=== PATIENT | male | born 1970 | race Caucasian/White ===

== ENCOUNTER 2022-02-07 09:46 | Emergency (ER) | payer OTHER ==
--- OUTSIDE RECORDS SUMMARY | 2022-02-07 09:49 | XMS REPORT | Continuity of Care Document ---
:1970 Author Organization [facility] t Address [address] [place] [id number] Care Team Providers Name Role Phone Chiara Morelos Attending Clinician Unavailable Problems Condition Condition Condition Status Onset Resolution Last Treating Co mments Source Name Details Category Date Date Treatment Clinician Date Olecranon Olecranon Diagnosis Active C ommon bursitis bursitis Spirit of right of right - [facility] elbow elbow [facility] Pain in Pain in Diagnosis Active Commo n joint of joint of Spirit right right - [facility] elbow elbow [facility] Allergies, Adverse Reactions, Alerts This patient has no known allergies or adverse reactions. Medications Ordered Filled Start Stop Current Ordering Indication Dosage Frequency Signature Comments Components Source Medication Medication Date Date Medication? Clinician (SIG) Name Name Gabapentin Gabapentin Yes Ed TAKE 1 Common Ly CAPSULE BY Spirit MOUTH - [facility] EVERYDAY [facility] AT [facility] Diclofenac Diclofenac Yes Ed APPLY 2 Common Sodium Sodium Ly GRAMS [facility] Losartan Yes Ed TAKE 1 Co mmon Potassium-H Potassium-H Ly TABLET BY Spirit CTZ CTZ MOUTH - [facility] EVERY DAY [facility] Simvastatin Simvastatin Yes Ed TAKE 1 Common Ly TABLET [facility] Procedures This patient has no known procedures. Encounters Start End Encounter Admission Attending Care Care Encounter Source Date/Time Date/Time Type Type Clinicians Facility Department ID 2021-07-09 Outpatient ALEXA Morelos [facility] [id number] Common 11:12:56 Chiara [id number] [facility] 2021-12-08 2021-12-08 Outpatient LEWIS SAUCEDO [id number] Memoria 15:00:00 15:00:00 09 deidre Tellez 2021-12-08 2021-12-08 Outpatient [facility]IE [facility] [id number] Memoria 15:00:00 15:00:00 09 deidre Geoff 2020-12-06 2020-12-06 Outpatient MHIE [facility] [id number] Memoria 14:00:00 14:00:00 08 deidre Geoff 2020-12-06 2020-12-06 Outpatient MHIE [facility]IE [id number] Memoria 14:00:00 14:00:00 08 deidre Tellez 2019-12-08 2019-12-08 Outpatient MHIE [facility]IE [id number] Memoria 14:00:00 14:00:00 07 deidre Tellez 2019-12-08 2019-12-08 Outpatient MHIE MHIE [id number] Memoria 14:00:00 14:00:00 07 deidre Tellez 2019-08-22 2019-08-22 [id number] Common 11:00:00 11:00:00 [facility] 2019-04-05 2019-04-05 Outpatient MHIE MHIE [id number] Memoria 16:15:00 16:15:00 06 deidre Tellez 2019-04-05 2019-04-05 Outpatient MHIE [facility]IE [id number] Memoria 16:15:00 16:15:00 06 deidre Tellez 2019-03-30 2019-03-30 Outpatient MHIE [facility]IE [id number] Memoria 09:15:00 09:15:00 05 deidre Tellez 2019-03-30 2019-03-30 Outpatient MHIE [facility] [id number] Memoria 09:15:00 09:15:00 05 deidre Tellez 2018-11-29 2018-11-29 Outpatient MHIE [facility]IE [id number] Memoria 09:45:00 09:45:00 04 deidre Tellez 2018-11-29 2018-11-29 Outpatient MHIE MHIE [id number] Memoria 09:45:00 09:45:00 04 deidre Tellez 2018-10-19 2018-10-19 Outpatient MHIE MHIE [id number] Memoria 15:45:00 15:45:00 01 deidre Tellez 2018-10-19 2018-10-19 Outpatient MHIE [facility] [id number] Memoria 15:45:00 15:45:00 01 deidre Tellez 2018-09-02 2018-09-02 Outpatient MHIE MHIE [id number] Memoria 16:15:00 16:15:00 03 l Geoff 2018-09-02 2018-09-02 Outpatient MHIE MHIE [id number] Memoria 16:15:00 16:15:00 03 deidre Tellez 2018-08-25 2018-08-25 Outpatient MHIE MHIE [id number] Mem[facility] 13:00:00 13:00:00 02 l Geoff 2018-08-25 2018-08-25 Outpatient MHIE MHIE [id number] Memoria 13:00:00 13:00:00 02 deidre Tellez 2018-05-13 2018-05-13 Outpatient MHIE MHIE [id number] Mem[address] 09:15:00 09:15:00 00 deidre Tellez 2018-05-13 2018-05-13 Outpatient MHIE MHIE [id number] Memoria 09:15:00 09:15:00 00 deidre Tellez Results This patient has no known results.
--- NOTE | 2022-02-07 11:29 | RAD REPORT ---
EXAM DESCRIPTION: US - Extremity Venous Uni Ltd - 02/07/2022 11:18 am CLINICAL HISTORY: Pain COMPARISON: None. TECHNIQUE: Real-time sonographic evaluation of the left lower extremity deep venous system was perfo rmed. FINDINGS: Normal compressibility, flow augmentation, phasic flow and spontaneous flow is identified in the left lower extremity deep venous system. No intraluminal filling defects seen. IMPRESSION: No DVT in the left lower extremity.
--- NOTE | 2022-02-07 11:36 | ER ---
Nurse's Notes [facility] Name: Efraín Lebron Age: 51 yrs Sex: Male : 1970 Arrival Date: 02/07/2022 Time: 09:47 Bed 14 Private MD: Diagnosis: Pain in left leg Presentation: 02/07 09:52 Chief complaint: Patient states: Pain that began in L buttock area on Wednesday, but ss now has progressed to a cramp in L calf and tenderness to L ankle. Pt went to urgent care this morning, but was sent to ED for possible evaluation of DVT. Coronavirus screen: Client denies travel out of the [place] in the last 14 days. Ebola Screen: Patient denies exposure to infectious person. Patient denies travel to an Ebola-affected area in the 21 days before illness onset. Initial Sepsis Screen: Does the patient meet any 2 criteria? No. Patient's initial sepsis screen is negative. Does the patient have a suspected source of infection? No. Patient's initial sepsis screen is negative. Risk Assessment: Do you want to hurt yourself or someone else? Patient reports no desire to harm self or others. Onset of symptoms was February 04, 2022. 09:52 Method Of Arrival: Ambulatory ss 09:52 Acuity: MICHAEL 3 ss Triage Assessment: 10:00 General: Appears in no apparent distress. Behavior is calm, cooperative. jg9 Historical: - Allergies: 09:55 No Known Allergies; ss - Home Meds: 09:55 Simvastatin Oral [Active]; gabapentin oral [Active]; ss 09:56 losartan oral [Active]; Hydrochlorothiazide Oral [Active]; ss - PMHx: 09:55 Hypertensive disorder; High Cholesterol; Pinched nerve R arm; ss - PSHx: 09:55 Appendectomy; ss - Immunization history:: Client reports receiving the 2nd dose of the Covid vaccine. - Social history:: Smoking status: Patient denies any tobacco usage or history of. Screenin:29 Abuse screen: Denies threats or abuse. Denies injuries from another. Nutritional jg9 screening: No deficits noted. Tuberculosis screening: No symptoms or risk factors identified. Fall Risk None identified. Assessment: 10:00 Reassessment: No changes from previously documented assessment. Patient and/or family jg9 updated on plan of care and expected duration. Pain level reassessed. Patient is alert, oriented x 3, equal unlabored respirations, skin warm/dry/pink. Pain: Complains of pain in left medial ankle and left upper thigh. 10:00 Neuro: No deficits noted. Cardiovascular: No deficits noted. Respiratory: No deficits jg9 noted. GI: No deficits noted. : No deficits noted. EENT: No deficits noted. Derm: No deficits noted. Musculoskeletal: Reports pain in left leg and left upper thigh and left medial ankle. 11:00 Reassessment: No changes from previously documented assessment. Patient and/or family jg9 updated on plan of care and expected duration. Pain level reassessed. Patient is alert, oriented x 3, equal unlabored respirations, skin warm/dry/pink. Vital Signs: 09:52 BP 144 / 97; Pulse 65; Resp 16; Temp 97.3(TE); Pulse Ox 99% on R/A; Weight 86.18 kg; ss Height 5 ft. 9 in. (175.26 cm); Pain 0/10; 10:00 BP 142 / 96; Pulse 62; Resp 14 S; Pulse Ox 99% ; jg9 10:15 BP 146 / 91; Pulse 61; Resp 17 S; Pulse Ox 99% on R/A; jg9 11:15 BP 132 / 90; Pulse 60; Resp 16 S; Pulse Ox 98% on R/A; jg9 09:52 Body Mass Index 28.06 (86.18 kg, 175.26 cm) ED Course: 09:47 Patient arrived in ED. rg4 09:54 Manjinder Griggs PA is PHCP. cp 09:55 Wagner Womack MD is Attending Physician. cp 09:55 Triage completed. ss 09:55 Arm band placed on right wrist. ss 10:21 Rylie Cam, ISHAAN is Primary Nurse. jg9 10:29 Patient has correct armband on for positive identification. Bed in low position. Call jg9 light in reach. Side rails up X 1. 11:20 US Extremity Venous Unilateral Ltd In Process Unspecified. EDMS 11:41 No provider procedures requiring assistance completed. jg9 11:42 Patient did not have IV access during this emergency room visit. jg9 Administered Medications: No medications were administered Medication: 11:42 VIS not applicable for this client. jg9 Outcome: 11:35 Discharge ordered by . arnie 11:41 Discharged to home ambulatory. jg9 11:41 Condition: unchanged 11:41 Discharge instructions given to patient, Instructed on discharge instructions, follow up and referral plans. Demonstrated understanding of instructions, follow-up care, Prescriptions given X 1. 11:42 Patient left the ED. jg9 Signatures: Dispatcher [employer] EDMS Paige Nixon RN RN Manjinder Griggs PA PA cp Garcia, Rubi rg4 Rylie Cam RN RN jg9
--- NOTE | 2022-02-07 11:36 | EDPHYS ---
Physician Documentation [facility] Name: Efraín Lebron Age: 51 yrs Sex: Male : 1970 Arrival Date: 02/07/2022 Time: 09:47 Bed 14 Private MD: ED Physician Wagner Womack HPI: 02/07 10:30 This 51 yrs old Male presents to ER via Ambulatory with complaints of Leg Pain. cp 10:30 The patient presents with pain, that is acute. Context: Patient reports achy pain cp started to left buttock area this past Wednesday. Now having pain to left calf and left ankle. Referred to ED by Urgent Care due to concern for DVT. Denies injury. Reports recent travel. Associated signs and symptoms: Pertinent positives: calf tenderness, Pertinent negatives fever, numbness, tingling, warmth, weakness, low back pain. Treatment prior to arrival includes: no previous treatment. Historical: - Allergies: 09:55 No Known Allergies; ss - Home Meds: 09:55 Simvastatin Oral [Active]; gabapentin oral [Active]; ss 09:56 losartan oral [Active]; Hydrochlorothiazide Oral [Active]; ss - PMHx: 09:55 Hypertensive disorder; High Cholesterol; Pinched nerve R arm; ss - PSHx: 09:55 Appendectomy; ss - Immunization history:: Client reports receiving the 2nd dose of the Covid vaccine. - Social history:: Smoking status: Patient denies any tobacco usage or history of. ROS: 10:35 Constitutional: Negative for body aches, chills, fever, poor PO intake. cp 10:35 Eyes: Negative for injury, pain, redness, and discharge. cp 10:35 ENT: Negative for drainage from ear(s), ear pain, sore throat, difficulty swallowing, difficulty handling secretions. 10:35 Neck: Negative for pain with movement, pain at rest, stiffness. 10:35 Cardiovascular: Negative for chest pain, edema, palpitations. 10:35 Respiratory: Negative for cough, shortness of breath, wheezing. 10:35 Abdomen/GI: Negative for abdominal pain, nausea, vomiting, and diarrhea. 10:35 Back: Negative for pain at rest, pain with movement. 10:35 : Negative for urinary symptoms. 10:35 MS/extremity: Positive for pain, of the left leg, Negative for injury or acute deformity, decreased range of motion, paresthesias, swelling. 10:35 Skin: Negative for cellulitis, rash. 10:35 Neuro: Negative for altered mental status, dizziness, headache, numbness, tingling, weakness. 10:35 All other systems are negative. Exam: 10:40 Constitutional: The patient appears in no acute distress, alert, awake, cp non-diaphoretic, non-toxic, well developed, well nourished. 10:40 Head/Face: Normocephalic, atraumatic. cp 10:40 Eyes: Periorbital structures: appear normal, Conjunctiva: normal, no exudate, no injection, Sclera: no appreciated abnormality, Lids and lashes: appear normal, bilaterally. 10:40 ENT: External ear(s): are unremarkable, Nose: is normal, Mouth: Lips: moist, Oral mucosa: pink and intact, moist, Posterior pharynx: Airway: no evidence of obstruction, patent. 10:40 Neck: ROM/movement: is normal, is supple, without pain, no range of motions limitations. 10:40 Chest/axilla: Inspection: normal. 10:40 Cardiovascular: Rate: normal, Rhythm: regular, Edema: is not appreciated, JVD: is not appreciated. 10:40 Respiratory: the patient does not display signs of respiratory distress, Respirations: normal, no use of accessory muscles, no retractions, labored breathing, is not present. 10:40 Abdomen/GI: Inspection: abdomen appears normal, Palpation: abdomen is soft and non-tender, in all quadrants. 10:40 Back: pain, is absent, ROM is normal. 10:40 Musculoskeletal/extremity: Extremities: noted in the left hamstring area and left calf and medial left ankle: pain, tenderness, There is no evidence of swelling, injury, ROM: full active range of motion, in the left leg, Perfusion: the extremity is normally perfused throughout, the left leg Sensation intact. 10:40 Skin: cellulitis, is not appreciated, no rash present. Vital Signs: 09:52 BP 144 / 97; Pulse 65; Resp 16; Temp 97.3(TE); Pulse Ox 99% on R/A; Weight 86.18 kg; ss Height 5 ft. 9 in. (175.26 cm); Pain 0/10; 10:00 BP 142 / 96; Pulse 62; Resp 14 S; Pulse Ox 99% ; jg9 10:15 BP 146 / 91; Pulse 61; Resp 17 S; Pulse Ox 99% on R/A; jg9 11:15 BP 132 / 90; Pulse 60; Resp 16 S; Pulse Ox 98% on R/A; jg9 09:52 Body Mass Index 28.06 (86.18 kg, 175.26 cm) ss MDM: 09:59 Patient medically screened. cp 11:00 Differential diagnosis: contusion, cellulitis, DVT, sprain, strain. cp 11:35 Data reviewed: vital signs, nurses notes, radiologic studies, ultrasound. cp 11:35 Counseling: I had a detailed discussion with the patient and/or guardian regarding: the cp historical points, exam findings, and any diagnostic results supporting the discharge/admit diagnosis, radiology results, to return to the emergency department if symptoms worsen or persist or if there are any questions or concerns that arise at home. ED course: VSS. US negative for DVT. Will treat for musculoskeletal pain with NSAIDs and discharge to home for continued monitoring. 02/07 10:16 Order name: US Extremity Venous Unilateral Ltd; Complete Time: 11:32 cp 02/07 11:32 Interpretation: Report reviewed. cp Administered Medications: No medications were administered Disposition Summary: 02/07/22 11:35 Discharge Ordered Location: Home cp Problem: new cp Symptoms: have improved cp Condition: Stable cp Diagnosis - Pain in left leg cp Followup: cp - With: Private Physician - When: 2 - 3 days - Reason: Recheck today's complaints Discharge Instructions: - Discharge Summary Sheet cp - Musculoskeletal Pain cp Forms: - Medication Reconciliation Form cp - Thank You Letter cp - Antibiotic Education cp - Prescription Opioid Use cp Prescriptions: - Diclofenac Sodium 75 mg Oral tablet,delayed release (DR/EC) - take 1 tablet by ORAL route 2 times per day; 20 tablet; Refills: 0, Product cp Selection Permitted Addendum: 02/08/2022 17:16 Co-signature as Attending Physician, Wagner Womack MD. r n Signatures: Dispatcher [employer] EDMS Wagner Womack MD MD rn Smirch, Shelby, RN RN ss Manjinder Griggs PA PA cp
[2022-02-07 11:56] VITALS: TEMP 97.3
[2022-02-07 12:02] VITALS: BP 132/90; O2SAT 98
== END 2022-02-07 11:42 | disposition home or self-care (01) ==
LOC: ER 09:46
DX: M79.605 Pain in left leg (principal); I10 Essential (primary) hypertension; E78.00 Pure hypercholesterolemia, unspecified
CPT/HCPCS: 93971; 99283

== ENCOUNTER 2022-02-13 12:06 | Emergency (ER) | payer OTHER ==
--- OUTSIDE RECORDS SUMMARY | 2022-02-13 12:08 | XMS REPORT | Continuity of Care Document ---
:1970 Author Organization [facility] t Address [address] [place] [address] Care Team Providers Name Role Phone Chiara Morelos Attending Clinician Unavailable Problems Condition Condition Condition Status Onset Resolution Last Treating Co mments Source Name Details Category Date Date Treatment Clinician Date Pain in Pain in Diagnosis Active Commo n joint of joint of Spirit right right - [facility] elbow elbow [facility] Olecranon Olecranon Diagnosis Active C ommon bursitis bursitis Spirit of right of right - [facility] elbow elbow [facility] Allergies, Adverse Reactions, Alerts This patient has no known allergies or adverse reactions. Medications Ordered Filled Start Stop Current Ordering Indication Dosage Frequency Signature Comments Components Source Medication Medication Date Date Medication? Clinician (SIG) Name Name Gabapentin Gabapentin Yes Ed TAKE 1 Common Ly CAPSULE [facility] Dic[facility]ac Diclofenac Yes Ed APPLY 2 Common Sodium Sodium Ly GRAMS [facility]artan Yes Ed TAKE 1 Co mmon Potassium-H Potassium-H Ly TABLET BY Spirit CTZ CTZ MOUTH - [facility] EVERY DAY [facility] Simvastatin Simvastatin Yes Ed TAKE 1 Common Ly TABLET BY Spirit MOUTH - [facility] EVERYDAY [facility] AT [facility] Procedures This patient has no known procedures. Encounters Start End Encounter Admission Attending Care Care Encounter Source Date/Time Date/Time Type Type Clinicians Facility Department ID 2021-07-09 Outpatient ALEXA Morelos OBINNA [id number] Common 11:12:56 Chiara [id number] [facility] - [facility] 2021-12-08 2021-12-08 Outpatient LEWIS SAUCEDO [id number] Demetria 15:00:00 15:00:00 Gregor Tellez 2021-12-08 2021-12-08 Outpatient MHIE MHIE [id number] Memoria 15:00:00 15:00:00 09 deidre Tellez 2021-12-08 2021-12-08 Outpatient MHIE MHIE [id number] Memoria 15:00:00 15:00:00 09 deidre Tellez 2020-12-06 2020-12-06 Outpatient MHIE MHIE [id number] Memoria 14:00:00 14:00:00 08 deidre Geoff 2020-12-06 2020-12-06 Outpatient MHIE MHIE [id number] Memoria 14:00:00 14:00:00 08 deidre Tellez 2020-12-06 2020-12-06 Outpatient MHIE MHIE [id number] Memoria 14:00:00 14:00:00 08 deidre Tellez 2019-12-08 2019-12-08 Outpatient MHIE MHIE [id number] Memoria 14:00:00 14:00:00 07 deidre Tellez 2019-12-08 2019-12-08 Outpatient MHIE MHIE [id number] Memoria 14:00:00 14:00:00 07 deidre Tellez 2019-12-08 2019-12-08 Outpatient MHIE MHIE [id number] Memoria 14:00:00 14:00:00 07 deidre Tellez 2019-08-22 2019-08-22 [id number] Common 11:00:00 11:00:00 t [facility] Sp[facility] t and Joint [facility] - [facility] 2019-04-05 2019-04-05 Outpatient MHIE MHIE [id number] Memoria 16:15:00 16:15:00 06 deidre Tellez 2019-04-05 2019-04-05 Outpatient MHIE MHIE [id number] Memoria 16:15:00 16:15:00 06 deidre Tellez 2019-04-05 2019-04-05 Outpatient MHIE MHIE [id number] Memoria 16:15:00 16:15:00 06 deidre Tellez 2019-03-30 2019-03-30 Outpatient MHIE MHIE [id number] Memoria 09:15:00 09:15:00 05 deidre Tellez 2019-03-30 2019-03-30 Outpatient MHIE MHIE [id number] Memoria 09:15:00 09:15:00 05 l [place] 2019-03-30 2019-03-30 Outpatient MHIE MHIE [id number] Memoria 09:15:00 09:15:00 05 l Geoff 2018-11-29 2018-11-29 Outpatient MHIE MHIE [id number] Memoria 09:45:00 09:45:00 04 l Geoff 2018-11-29 2018-11-29 Outpatient MHIE MHIE [id number] Memoria 09:45:00 09:45:00 04 l Geoff 2018-11-29 2018-11-29 Outpatient MHIE MHIE [id number] Memoria 09:45:00 09:45:00 04 deidre [place] 2018-10-19 2018-10-19 Outpatient MHIE MHIE [id number] Memoria 15:45:00 15:45:00 01 deidre Tellez 2018-10-19 2018-10-19 Outpatient MHIE MHIE [id number] Memoria 15:45:00 15:45:00 01 deidre [place] 2018-10-19 2018-10-19 Outpatient MHIE MHIE [id number] Memoria 15:45:00 15:45:00 01 l Geoff 2018-09-02 2018-09-02 Outpatient MHIE MHIE [id number] Memoria 16:15:00 16:15:00 03 l [place] 2018-09-02 2018-09-02 Outpatient MHIE MHIE [id number] Memoria 16:15:00 16:15:00 03 l Geoff 2018-09-02 2018-09-02 Outpatient MHIE MHIE [id number] Memoria 16:15:00 16:15:00 03 l Geoff 2018-08-25 2018-08-25 Outpatient MHIE MHIE [id number] Memoria 13:00:00 13:00:00 02 l Geoff 2018-08-25 2018-08-25 Outpatient MHIE MHIE [id number] Memoria 13:00:00 13:00:00 02 deidre Tellez 2018-08-25 2018-08-25 Outpatient MHIE MHIE [id number] Memoria 13:00:00 13:00:00 02 deidre Tellez 2018-05-13 2018-05-13 Outpatient MHIE MHIE [id number] Memoria 09:15:00 09:15:00 00 deidre Tellez 2018-05-13 2018-05-13 [id number] Mem[facility] 09:15:00 09:15:00 00 deidre Tellez 2018-05-13 2018-05-13 [facility] [id number] Memoria 09:15:00 09:15:00 00 deidre Tellez Results This patient has no known results.
--- NOTE | 2022-02-13 13:29 | RAD REPORT ---
EXAM DESCRIPTION: US - Lower Extremity Artery Uni Ltd - 02/13/2022 1:23 pm CLINICAL HISTORY: LLE pain Leg pain, claudication COMPARISON: No comparisons FINDINGS: Grayscale, color and power Doppler interrogation the left lower extremity arterial system was performed. Triphasic waveforms are seen throughout the left lower extremity arterial system. No occlusion or sig nificant stenosis. IMPRESSION: No flow abnormality seen left lower extremity arterial system.
[2022-02-13] MEDS ORDERED: MORPHINE 4 MG/ML SYR ONE (14:23)
[2022-02-13] MEDS ORDERED: ONDANSETRON 4 MG/2 ML VIAL ONE (14:24)
[2022-02-13] MEDS ORDERED: dexAMETHasone 10 MG/ML VIAL ONE (14:24)
--- NOTE | 2022-02-13 15:43 | ER ---
Nurse's Notes [facility] Name: Efraín Lebron Age: 51 yrs Sex: Male : 1970 Arrival Date: 02/13/2022 Time: 12:06 Bed 12 Private MD: Chiara Morelos Diagnosis: Pain in left leg;Radiculopathy, lumbar region Presentation: 02/13 12:47 Chief complaint: Patient states: about a week ago I started having pain in my left hip bm7 and buttock area and I came to the ER and they ruled out a blood clot and since about 0900 I have constant pain from my buttock all the way down to my foot and I can not walk. I yana my primary provider and they ordered PT but something has changed today. Coronavirus screen: At this time, the client does not indicate any symptoms associated with coronavirus-19. Ebola Screen: No symptoms or risks identified at this time. Initial Sepsis Screen: Does the patient meet any 2 criteria? No. Patient's initial sepsis screen is negative. Does the patient have a suspected source of infection? No. Patient's initial sepsis screen is negative. Risk Assessment: Do you want to hurt yourself or someone else? Patient reports no desire to harm self or others. Onset of symptoms was February 13, 2022 at 09:00. Care prior to arrival: Medication(s) given: Motrin, \T\ 1100. 12:47 Method Of Arrival: Wheelchair bm7 12:47 Acuity: MICHAEL 3 bm7 Triage Assessment: 12:51 General: Appears in no apparent distress. uncomfortable, Behavior is calm, cooperative, bm7 appropriate for age. Pain: Complains of pain in buttocks Pain radiates to left foot and left leg Pain currently is 10 out of 10 on a pain scale. Pain began gradually, Noted to be resistant to movement. EENT: No deficits noted. No signs and/or symptoms were reported regarding the EENT system. Neuro: Denies weakness in left leg. Cardiovascular: No deficits noted. Respiratory: No deficits noted. GI: No deficits noted. No signs and/or symptoms were reported involving the gastrointestinal system. : No deficits noted. No signs and/or symptoms were reported regarding the genitourinary system. Derm: No deficits noted. No signs and/or symptoms reported regarding the dermatologic system. Musculoskeletal: Reports pain in buttocks, left foot and left leg. Historical: - Allergies: 12:51 No Known Allergies; bm7 - Home Meds: 12:51 gabapentin Oral [Active]; Hydrochlorothiazide Oral [Active]; losartan Oral [Active]; bm7 Simvastatin Oral [Active]; - PMHx: 12:51 High Cholesterol; bm7 - Immunization history:: Adult Immunizations up to date. - Social history:: Smoking status: Patient denies any tobacco usage or history of. - Family history:: not pertinent. - Hospitalizations: : No recent hospitalization is reported. Screenin:30 Abuse screen: Denies threats or abuse. Denies injuries from another. Nutritional ss screening: No deficits noted. Tuberculosis screening: Never had TB. Fall Risk None identified. Assessment: 14:30 General: Appears in no apparent distress. comfortable, Behavior is Denies fever, ss feeling ill. Pain: Complains of pain in left hamstring and left gluteal fold and left foot Pain currently is 10 out of 10 on a pain scale. Is. Neuro: Level of Consciousness is awake, alert, obeys commands, Oriented to person, place, time, situation. Cardiovascular: Capillary refill < 3 seconds is brisk in bilateral fingers. Respiratory: Airway is patent Respiratory effort is even, unlabored, Respiratory pattern is regular, symmetrical. EENT: Oral mucosa is moist. Derm: Skin is intact, is healthy with good turgor, Skin is dry, Skin is pink, warm \T\ dry. normal. Musculoskeletal: Circulation, motion, and sensation intact. Range of motion: intact in all extremities, Swelling. Vital Signs: 12:47 BP 141 / 93; Pulse 61; Resp 16; Temp 97.8(O); Pulse Ox 100% on R/A; Weight 86.18 kg bm7 (R); Height 5 ft. 9 in. (175.26 cm); Pain 10/10; 12:47 Body Mass Index 28.06 (86.18 kg, 175.26 cm) bm7 ED Course: 12:06 Patient arrived in ED. am2 12:06 Chiara Morelos is Private Physician. am2 12:50 Wagner Womack MD is Attending Physician. rn 12:51 Triage completed. bm7 12:51 Arm band placed on right wrist. bm7 13:23 Lower Extremity Artery [employer] US In Process Unspecified. EDMS 14:11 Paige Nixon, RN is Primary Nurse. ss 14:29 Inserted saline lock: 20 gauge in right antecubital area, using aseptic technique. ss Patient maintains SpO2 saturation greater than 95% on room air. 14:30 Patient has correct armband on for positive identification. ss 16:03 No provider procedures requiring assistance completed. IV discontinued, intact, ss bleeding controlled, No redness/swelling at site. Pressure dressing applied. Administered Medications: 14:25 Drug: Zofran (Ondansetron) 4 mg Route: IVP; Site: right antecubital; ss 16:02 Follow up: Response: No adverse reaction; Pain is decreased ss 14:26 Drug: morphine 4 mg Route: IVP; Infused Over: 4 mins; Site: right antecubital; ss 16:02 Follow up: Response: No adverse reaction; Pain is decreased ss 14:29 Drug: Decadron - Dexamethasone 10 mg Route: IVP; Site: right antecubital; ss 16:02 Follow up: Response: No adverse reaction; Pain is decreased ss Medication: 14:30 VIS not applicable for this client. ss Outcome: 15:42 Discharge ordered by . rn 16:03 Discharged to home ambulatory. ss 16:03 Condition: good 16:03 Discharge instructions given to patient, Instructed on discharge instructions, follow up and referral plans. medication usage, Demonstrated understanding of instructions, follow-up care, medications, Prescriptions given X 3. 16:13 Patient left the ED. ss Signatures: Dispatcher [employer] [facility] Wagner Womack MD MD rn Smirch, Shelby, RN RN Vee Franks am2 Aneta Chavarria RN RN bm7
--- NOTE | 2022-02-13 15:43 | EDPHYS ---
Physician Documentation [facility] Name: Efraín Lebron Age: 51 yrs Sex: Male : 1970 Arrival Date: 02/13/2022 Time: 12:06 Bed 12 Private MD: Chiara Morelos ED Physician Wagner Womack HPI: 02/13 13:28 This 51 yrs old Male presents to ER via Wheelchair with complaints of Leg Pain - left. rn 13:28 The patient presents with pain, that is acute. The complaints affect the left gluteal rn fold and left hamstring and left leg. 13:29 Onset: The symptoms/episode began/occurred 1 week(s) ago. Modifying factors: The rn symptoms are alleviated by remaining still, the symptoms are aggravated by movement. Severity of symptoms: At their worst the symptoms were moderate, in the emergency department the symptoms are unchanged. The patient has not experienced similar symptoms in the past. The patient has been recently seen by a physician:. Pt reports seen here about 1 week ago for left leg pain, had neg DVT study at that time. No trauma. No weakness. No bowel or bladder problems. Seen by [facility] after that visit, told maybe had nerve problem, no new prescriptions given. Returns today for worsening pain. No swelling. Reports pain intermittent but moderate. Pain starts in left buttocks and travels down to toes. . Historical: - Allergies: 12:51 No Known Allergies; bm7 - Home Meds: 12:51 gabapentin Oral [Active]; Hydrochlorothiazide Oral [Active]; losartan Oral [Active]; bm7 Simvastatin Oral [Active]; - PMHx: 12:51 High Cholesterol; bm7 - Immunization history:: Adult Immunizations up to date. - Social history:: Smoking status: Patient denies any tobacco usage or history of. - Family history:: not pertinent. - Hospitalizations: : No recent hospitalization is reported. ROS: 13:29 Constitutional: Negative for fever, chills, and weight loss, Eyes: Negative for injury, rn pain, redness, and discharge, Cardiovascular: Negative for chest pain, palpitations, and edema, Respiratory: Negative for shortness of breath, cough, wheezing, and pleuritic chest pain, Abdomen/GI: Negative for abdominal pain, nausea, vomiting, diarrhea, and constipation, Back: Negative for injury and pain, MS/Extremity: + left leg pain Skin: Negative for injury, rash, and discoloration, Neuro: Negative for headache, weakness, numbness, tingling, and seizure. Exam: 13:29 Constitutional: This is a well developed, well nourished patient who is awake, alert, rn appears uncomfortable Head/Face: Normocephalic, atraumatic. Cardiovascular: Regular rate and rhythm. No pulse deficits. Respiratory: No increased work of breathing, no retractions or nasal flaring. Skin: Warm, dry, no cyanosis or rash MS/ Extremity: Pulses equal, no cyanosis. Neurovascular intact. Full, normal range of motion. Equal circumference. Neuro: Awake and alert, GCS 15. Motor strength 5/5 in all extremities. Sensory grossly intact. Cerebellar exam normal. Vital Signs: 12:47 BP 141 / 93; Pulse 61; Resp 16; Temp 97.8(O); Pulse Ox 100% on R/A; Weight 86.18 kg bm7 (R); Height 5 ft. 9 in. (175.26 cm); Pain 10/10; 12:47 Body Mass Index 28.06 (86.18 kg, 175.26 cm) bm7 MDM: 12:50 Patient medically screened. rn 15:41 Differential diagnosis: radiculopathy, neuropathy, DVT, arterial insufficiency. Data rn reviewed: vital signs, nurses notes, old medical records, radiologic studies, doppler, and as a result, I will discharge patient. Counseling: I had a detailed discussion with the patient and/or guardian regarding: the historical points, exam findings, and any diagnostic results supporting the discharge/admit diagnosis, radiology results, the need for outpatient follow up, to return to the emergency department if symptoms worsen or persist or if there are any questions or concerns that arise at home. Response to treatment: the patient's symptoms have markedly improved after treatment, and as a result, I will discharge patient. Special discussion: I discussed with the patient/guardian in detail that at this point there is no indication for admission to the hospital. It is understood, however, that if the symptoms persist or worsen the patient needs to return immediately for re-evaluation. Further emergent ED testing is not indicated at this point in time. I discussed with the patient/guardian in detail the need to arrange with the PCP or specialist further outpatient testing, MRI. 15:43 ED course: Pt already on gabapentin for other neuropathy. . rn 02/13 12:59 Order name: Lower Extremity Artery [employer] US; Complete Time: 14:18 rn 02/13 12:59 Order name: IV Start; Complete Time: 14:29 rn Administered Medications: 14:25 Drug: Zofran (Ondansetron) 4 mg Route: IVP; Site: right antecubital; ss 16:02 Follow up: Response: No adverse reaction; Pain is decreased ss 14:26 Drug: morphine 4 mg Route: IVP; Infused Over: 4 mins; Site: right antecubital; ss 16:02 Follow up: Response: No adverse reaction; Pain is decreased ss 14:29 Drug: Decadron - Dexamethasone 10 mg Route: IVP; Site: right antecubital; ss 16:02 Follow up: Response: No adverse reaction; Pain is decreased ss Disposition Summary: 02/13/22 15:42 Discharge Ordered Location: Home rn Problem: an ongoing problem rn Symptoms: have improved rn Condition: Stable rn Diagnosis - Pain in left leg rn - Radiculopathy, lumbar region rn Followup: rn - With: Private Physician - When: As needed - Reason: Recheck today's complaints, Re-evaluation by your physician Discharge Instructions: - Discharge Summary Sheet rn - Lumbosacral Radiculopathy rn - Musculoskeletal Pain rn - Neuropathic Pain rn Forms: - Medication Reconciliation Form rn - Thank You Letter rn - Antibiotic return agent - Prescription Opioid Use rn Prescriptions: - Cyclobenzaprine 10 mg Oral Tablet - take 1 tablet by ORAL route every 8 hours As needed; 15 tablet; Refills: 0, rn Product Selection Permitted - Tramadol 50 mg Oral Tablet - take 1 tablet by ORAL route every 8 hours as needed; 12 tablet; Refills: 0, rn Product Selection Permitted - Medrol (Wilner) 4 mg Oral Tablets, Dose Pack - take 1 tablet by ORAL route as directed - follow package instructions; 1 rn packet; Refills: 0, Product Selection Permitted Signatures: Dispatcher [employer] Wagner Roque MD MD rn Smirch, Shelby, RN RN ss Aneta Chavarria, RN RN bm7
[2022-02-13 17:18] VITALS: BP 141/93; TEMP 97.8; O2SAT 100
== END 2022-02-13 16:13 | disposition home or self-care (01) ==
LOC: ER 12:06
DX: M54.16 Radiculopathy, lumbar region (principal); E78.00 Pure hypercholesterolemia, unspecified
CPT/HCPCS: 93926; 96375; 96374; 99284; J1100; J2405